=== PATIENT | female | born 1980 | race Caucasian/White ===

== ENCOUNTER 2018-04-06 22:35 | Emergency (ER) | payer BC ==
[~2018-04-06] VITALS: Ht 167.6 cm; Wt 185.1 kg
--- OUTSIDE RECORDS SUMMARY | 2018-04-06 22:36 | XMS REPORT | Clinical Summary ---
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 Active albuterol (PROAIR Inhale 2 0 HFA,PROVENTIL puffs every 6 HFA,VENTOLIN HFA) 90 (six) hours mcg/actuation inhaler as needed for wheezing. Active budesonide-formoterol Inhale 2 1 Inhaler 2 (SYMBICORT) 160-4.5 puffs 2 (two) 7 mcg/actuation times a day. inhalerIndications: Reactive airway disease with acute exacerbation Active Problems Problem Noted Date Reactive airway disease with acute exacerbation 08/15/2016 Last Assessment & Plan: Hx and finidngs of diffuse wheezing c/w reactive airway disease. HDS/ VSS -discussed interventions, rescue vs combination inhalers -trial of symbicort -close monitoring -rtc in 2 weeks. Morbid obesity with BMI of 60.0-69.9, adult 08/15/2016 Left ankle pain 08/15/2016 Non-seasonal allergic rhinitis due to pollen 08/15/2016 Social History Date Tobacco Use Types Packs/Day Years Used Never Smoker Alcohol Use Drinks/Week oz/Week Comments No Sex Assigned at Date Recorded Not on file Industry Job Start Date Occupation Not on file Not on file Not on file Travel End Travel History Travel Start No recent travel history available. Last Filed Vital Signs Not on file Plan of Treatment Health Maintenance Due Date Last Done Comments MMR VACCINES ( - 1982 Standard series) VARICELLA VACCINES (1994 2 - 2-dose adolescent series) CERVICAL CANCER SCREENING 2002 INFLUENZA VACCINE 12/09/2017 HEPATITIS B VACCINES Aged Out No longer eligible based on patient's age to complete this topic IPV VACCINES Aged Out No longer eligible based on patient's age to complete this topic MENINGOCOCCAL VACCINE Aged Out No longer eligible based on patient's age to complete this topic Results Not on fileafter 04/05/2017 Insurance Payer Benefit Subscriber ID Type Phone Address Plan / Group BCBS BCBS xxxxxxxxxxxx PPO CHOICE PPO/[employer] [place] EMPL PPO Advance Directives Patient has advance care planning documents on file. For more information, shruthi olson contact: Willie Martin [phone] [place] [address]
== END 2018-04-06 23:53 | disposition home or self-care (01) ==
LOC: ER 22:35
DX: L02.811 Cutaneous abscess of head [any part, except face] (principal); J45.909 Unspecified asthma, uncomplicated
CPT/HCPCS: 99282